=== PATIENT | female | born 1995 | race African-American/Black ===

== ENCOUNTER 2016-07-30 13:13 | Emergency (ER) | payer BC ==
[~2016-07-30] VITALS: Ht 157.5 cm; Wt 67.0 kg
[2016-07-30 13:24] VITALS: TEMP 37.6; Ht 157.5 cm; Wt 67.0 kg
[2016-07-30] MEDS ORDERED: BCPILLS PO (13:36)
[2016-07-30] MEDS ORDERED: IBUPROFEN 600 MG TAB PO STA (13:46)
--- NOTE | 2016-07-30 13:47 | EMERGENCY ROOM VISIT NOTE ---
History Report prepared by Violet: Shonda Magaña Under the Supervision of: Dr. Sanchez Martínez M.D. First contact with patient: 13:30 Chief Complaint: FLU LIKE SX Stated Complaint: CHILLS, COUGH, STOMACH PAIN, COLD LIKE SYMPTONS History of Present Illness The patient is a 21 year old female who presents to the Emergency Room with complaints of a persistent illness that began several days ago. The patient states that for the past several days she has been battling a cold. She notes chills, diaphoresis, and a cough with her symptoms. The patient denies any sore throat or fever. She states that she has been using cold medications for her symptoms. The patient states that last evening she took NyQuil to help her sleep and states that she woke up out of her sleep with abdominal discomfort. She states that at first she thought that she was hungry so she tried eating a granola bar, but states that she still had the pain. The patient states that last evening she was having diarrhea, but notes constipation today. She denies any urinary symptoms today. The patient states that she has been keeping up on her fluids. She states that her last menstrual cycle was 2 1/2 weeks ago. The patient denies any recent sick contacts. Source of History: patient Onset: several days ago Position: other (illness) Quality: other (illness) Timing: other (persistent) Associated Symptoms: + abdominal pain, + chills, + cough, + diaphoresis, + diarrhea, No fevers, No urinary symptoms Note: Associateed Symptoms: constipation Review of Systems All systems have been listed, reviewed, and are negative other than those previously mentioned. Please see Additional Medical History Sheet. Past Medical & Surgical Medical Problems: (1) No active medical problems Family History No significant family history Social History Smoking Status: Never Smoker Smokeless Tobacco Use: No Alcohol Use: occasionally Marital Status: single Housing Status: lives with family Occupation Status: employed, student Current/Historical Medications Scheduled Control Pills ( Control Pills), 1 TAB PO DAILY Scheduled PRN Ibuprofen Tab (Motrin), 600 MG PO Q6H PRN for Pain Allergies Coded Allergies: No Known Allergies (Unverified , 07/30/16) Physical Exam Vital Signs Date Time Temp Pulse Resp B/P Pulse Ox O2 Delivery O2 Flow Rate FiO2 07/30/16 15:30 98 16 112/76 97 Room Air 1/8/17 13:24 37.6 110 20 131/81 97 Physical Exam GENERAL: Patient awake, alert, oriented x 3. Patient follows commands. Patient does not appear toxic. Patient is adequately hydrated and well- nourished. SKIN: No erythema, pallor, cyanosis or rash HEENT: Normal head, pupils equal, reactive to light and accommodation. Ears normal. Oral cavity and posterior pharynx appear normal. Neck: Without adenopathy, no neck vein distention. LUNGS: Clear to auscultation. No wheezes, no rales, no rhonchi. HEART: No murmurs. No gallops. No rubs ABDOMEN: No masses, no rebound, no hepatomegaly or splenomegaly. EXTREMITIES: No signs of trauma. No pedal or pretibial edema. No calf or thigh tenderness. NEUROLOGIC: Cranial nerves II-XII within normal limits. No gross motor sensory function deficits. Medical Decision & Procedures Laboratory Results 07/30/16 14:00 07/30/16 14:00 Test 07/30/16 14:00 Red Blood Count 4.89 M/uL (4.2-5.4) Mean Corpuscular Volume 85.9 fL (80-100) Mean Corpuscular Hemoglobin 28.2 pg (25-34) Mean Corpuscular Hemoglobin Concent 32.9 g/dl (32-36) RDW Standard Deviation 40.8 fL (36.4-46.3) RDW Coefficient of Variation 12.9 % (11.5-14.5) Mean Platelet Volume 9.4 fL (7.4-10.4) Anion Gap 9.0 mmol/L (3-11) Est Creatinine Clear Calc Drug Dose 115.8 ml/min Estimated GFR () 144.2 Estimated GFR (Non- 124.4 BUN/Creatinine Ratio 7.1 (10-20) Calcium Level 9.1 mg/dl (8.5-10.1) Laboratory results as stated above per my review. Medications Administered Medications (Trade) Dose Ordered Sig/Rosalie Route Start Time Stop Time Status Last Admin Dose Admin Ibuprofen (Motrin Tab) 600 mg NOW STAT PO 07/30/16 13:46 07/30/16 13:48 DC 07/30/16 13:55 600 MG ED Course 1331: Past medical records reviewed. The patient was evaluated in room A10. A complete history and physical examination was performed. 1346: Ordered Motrin Tab 600 mg PO. 1510: I reevaluated the patient and she is resting comfortably. I discussed the exam findings with her and I discussed the treatment plan. She verbalized complete understanding and agreement. She is ready to go home. Medical Decision Nurses notes reviewed. Medical history sheet reviewed. Differential diagnosis includes but is not limited to: Viral infection, influenza, pneumonia, gastroenteritis. Blood work was evaluated. Please see above. The patient has no signs of bacterial infection. I believe she has a viral infection which did respond to ibuprofen. She will continue that medication at home. She was encouraged to drink extra fluids. Impression Primary Impression: Viremia Scribe Attestation The scribe's documentation has been prepared under my direction and personally reviewed by me in its entirety. I confirm that the note above accurately reflects all work, treatment, procedures, and medical decision making performed by me. Departure Information Dispostion Home / Self-Care Prescriptions Ibuprofen Tab (MOTRIN) 600 Mg Tab 600 MG PO Q6H Y for Pain, #20 TAB Prov: Sanchez Martínez M.D. 07/30/16 Referrals No Doctor, Assigned (PCP) Forms HOME CARE DOCUMENTATION FORM, IMPORTANT VISIT INFORMATION Patient Instructions A Signature Page, [facility] Additional Instructions 600 mg ibuprofen every 6 hours as needed for aches, pain or fever. Drink extra fluids. Follow-up at [facility] or return here in 3-4 days if symptoms are not subsiding. Work Instructions Return To Work: 2 days Specific Date: 08/01/16
[2016-07-30 14:33] LABS: MEAN CELL VOLUME 85.9 fL (80-100); MEAN CORPUSCULAR HEMOGLOBIN 28.2 pg (25-34); MEAN CORPUSCULAR HGB CONC 32.9 g/dl (32-36); MEAN PLATELET VOLUME 9.4 fL (7.4-10.4); PLATELET COUNT 315 K/uL (130-400); RED BLOOD COUNT 4.89 M/uL (4.2-5.4); WHITE BLOOD COUNT 8.72 K/uL (4.8-10.8)
[2016-07-30 14:48] LABS: BUN/CREATININE RATIO 7.1 (10-20); CALCIUM 9.1 mg/dl (8.5-10.1); CREATININE 0.69 mg/dl (0.60-1.20); POTASSIUM 3.6 mmol/L (3.5-5.1)
[2016-07-30] MEDS ORDERED: IBUP-1427 PO (15:16)
[2016-07-30 15:30] VITALS: BP 112/76; PULSE 98; O2SAT 97
== END 2016-07-30 15:35 | disposition home or self-care (01) ==
LOC: C.EDB 13:18 → C.EDA 15:35
DX: B34.9 Viral infection, unspecified (principal)

== ENCOUNTER 2017-11-13 12:51 | Emergency (ER) | payer BC ==
[~2017-11-13] VITALS: Ht 157.5 cm; Wt 65.6 kg
[~2017-11-13 12:51] MED LIST: BCPILLS PO
[2017-11-13 13:07] VITALS: Ht 157.5 cm; Wt 65.6 kg
[2017-11-13] MEDS ORDERED: SODIUM CHLORIDE 0.9% 500ML 500 ML IV STA (13:56)
[2017-11-13] MEDS ORDERED: KETOROLAC TROMETHAMINE 30 MG/ML VIAL IV STA (13:56)
[2017-11-13] MEDS ORDERED: ONDANSETRON INJ 2 MG/ML 2 ML VIAL IV PRN (14:00)
--- NOTE | 2017-11-13 14:00 | EMERGENCY ROOM VISIT NOTE ---
History First contact with patient: 13:47 Chief Complaint: PELVIC PAIN Stated Complaint: CRAMPS,TIGHTNESS History of Present Illness The patient is a 22 year old female who presents to the Emergency Room with complaints of lower abdominal cramping that has been intermittent throughout the day. The patient started her menses this morning. She denies any heavy bleeding. She reports also feeling constipated. She was able to have a normal bowel movement this morning. She denies any blood in her stool. She has also been intermittently nauseated without vomiting. No fever or chills. She denies any urinary symptoms. She took Tylenol with minimal relief of the pain. Review of Systems 10 system review performed and negative unless noted in HPI or below Past Medical/Surgical History Medical Problems: (1) No active medical problems Family History No significant family history Social History Smoking Status: Never Smoker Alcohol Use: occasionally Marital Status: single Housing Status: lives with family Occupation Status: employed, student Current/Historical Medications Scheduled PRN Ibuprofen (Motrin), 600 MG PO Q6H PRN for Pain Physical Exam Vital Signs Date Time Temp Pulse Resp B/P (MAP) Pulse Ox O2 Delivery O2 Flow Rate FiO2 11/13/17 18:02 37.0 59 20 107/67 100 11/13/17 17:53 59 20 107/67 100 Room Air 11/13/17 15:05 67 16 113/76 98 Room Air 11/13/17 13:07 37.0 72 20 108/69 98 Room Air Physical Exam VITALS: Vitals are noted on the nurse's note and reviewed by myself. Vital signs stable. GENERAL: 22-year-old female, in no acute distress, nondiaphoretic, well- developed well-nourished. SKIN: The skin was without rashes, erythema, edema, or bruising. HEAD: Normocephalic atraumatic. MOUTH: Mucous membranes moist. NECK: Supple without nuchal rigidity. No JVD. HEART: Regular rate and rhythm without murmurs gallops or rubs. LUNGS: Clear to auscultation bilaterally without wheezes, rales or rhonchi. No accessory muscle use. ABDOMEN: Positive bowel sounds x 4.Soft, tenderness palpation in the suprapubic region, without organomegaly. No guarding or rebound tenderness. MUSCULOSKELETAL: No muscle atrophy, erythema, or edema noted. Strength 5/5 throughout. NEURO: Patient was alert and oriented to person place and time. Normal sensation to touch. No focal neurological deficits. Medical Decision & Procedures ER Provider Diagnostic Interpretation: CT abdomen and pelvis with IV and oral contrast IMPRESSION: 1. No acute intra-abdominal or pelvic findings 2. No evidence of bowel obstruction. No evidence of free air 3. No evidence of acute appendicitis. No evidence of acute diverticulitis. Electronically signed by: Everardo Resendiz M.D. 11/13/2017 5:38 PM Dictated Date/Time: 11/13/2017 5:35 PM The status of this report is Signed. Draft = Not yet reviewed or approved by Radiologist. Signed = Reviewed and approved by Radiologist Pelvic ultrasound IMPRESSION: Normal pelvic ultrasound. Electronically signed by: Shaun Matute M.D. 11/13/2017 4:28 PM Dictated Date/Time: 11/13/2017 4:[address] abdomen and pelvis Laboratory Results 11/13/17 14:12 Red Blood Count 4.35, Mean Corpuscular Volume 85.7, Mean Corpuscular Hemoglobin 29.0, Mean Corpuscular Hemoglobin Concent 33.8, Mean Platelet Volume 9.3, Neutrophils (%) (Auto) 83.0, Lymphocytes (%) (Auto) 11.9, Monocytes (%) (Auto) 4.5, Eosinophils (%) (Auto) 0.2, Basophils (%) (Auto) 0.2, Neutrophils # (Auto) 7.62, Lymphocytes # (Auto) 1.09, Monocytes # (Auto) 0.41, Eosinophils # (Auto) 0.02, Basophils # (Auto) 0.02 11/13/17 14:12 Test 11/13/17 14:12 11/13/17 15:09 White Blood Count 9.18 K/uL (4.8-10.8) Red Blood Count 4.35 M/uL (4.2-5.4) Hemoglobin 12.6 g/dL (12.0-16.0) Hematocrit 37.3 % (37-47) Mean Corpuscular Volume 85.7 fL (80-100) Mean Corpuscular Hemoglobin 29.0 pg (25-34) Mean Corpuscular Hemoglobin Concent 33.8 g/dl (32-36) Platelet Count 281 K/uL (130-400) Mean Platelet Volume 9.3 fL (7.4-10.4) Neutrophils (%) (Auto) 83.0 % Lymphocytes (%) (Auto) 11.9 % Monocytes (%) (Auto) 4.5 % Eosinophils (%) (Auto) 0.2 % Basophils (%) (Auto) 0.2 % Neutrophils # (Auto) 7.62 K/uL (1.4-6.5) Lymphocytes # (Auto) 1.09 K/uL (1.2-3.4) Monocytes # (Auto) 0.41 K/uL (0.11-0.59) Eosinophils # (Auto) 0.02 K/uL (0-0.5) Basophils # (Auto) 0.02 K/uL (0-0.2) RDW Standard Deviation 41.4 fL (36.4-46.3) RDW Coefficient of Variation 13.0 % (11.5-14.5) Immature Granulocyte % (Auto) 0.2 % Immature Granulocyte # (Auto) 0.02 K/uL (0.00-0.02) Anion Gap 5.0 mmol/L (3-11) Est Creatinine Clear Calc Drug Dose 101.9 ml/min Estimated GFR () 127.0 Estimated GFR (Non- 109.6 BUN/Creatinine Ratio 13.5 (10-20) Calcium Level 9.0 mg/dl (8.5-10.1) Total Bilirubin 0.5 mg/dl (0.2-1) Aspartate Amino Transf (AST/SGOT) 12 U/L (15-37) Alanine Aminotransferase (ALT/SGPT) 22 U/L (12-78) Alkaline Phosphatase 75 U/L (45-117) Total Protein 8.4 gm/dl (6.4-8.2) Albumin 3.9 gm/dl (3.4-5.0) Globulin 4.5 gm/dl (2.5-4.0) Albumin/Globulin Ratio 0.9 (0.9-2) Lipase 80 U/L (73-393) Human Chorionic Gonadotropin, Qual NEG (NEG) Urine Color YELLOW Urine Appearance TURBID (CLEAR) Urine pH >= 9.0 (4.5-7.5) Urine Specific Driver 1.016 (1.000-1.030) Urine Protein NEG (NEG) Urine Glucose (UA) NEG (NEG) Urine Ketones NEG (NEG) Urine Occult Blood 3+ (NEG) Urine Nitrite NEG (NEG) Urine Bilirubin NEG (NEG) Urine Urobilinogen NEG (NEG) Urine Leukocyte Esterase NEG (NEG) Urine WBC (Auto) 5-10 /hpf (0-5) Urine RBC (Auto) 5-10 /hpf (0-4) Urine Hyaline Casts (Auto) /lpf (0-5) Urine Epithelial Cells (Auto) >30 /lpf (0-5) Urine Bacteria (Auto) NEG (NEG) Urine Renal Epithelial Cells /lpf (0-5) Urine Crystals AMORPHOUS SEDIMENT (NONE Urine Pathogenic Casts /lpf (0) Medications Administered Medications (Trade) Dose Ordered Sig/Rosalie Route Start Time Stop Time Status Last Admin Dose Admin Ketorolac Tromethamine (Toradol Inj) 30 mg NOW STAT IV 11/13/17 13:56 11/13/17 13:58 DC 11/13/17 14:17 30 MG Ondansetron HCl (Zofran Inj) 4 mg Q2H PRN IV 11/13/17 14:00 11/13/17 18:35 DC 11/13/17 14:17 4 MG Sodium Chloride 500 ml @ 999 mls/hr Q31M STAT IV 11/13/17 13:56 11/13/17 14:26 DC 11/13/17 13:56 999 MLS/HR ED Course Patient was seen and examined Vital signs including blood pressure were reviewed medications list was verified with patient Labs were obtained, and a saline lock was established The patient was medicated with Toradol 30 mg IV and Zofran 4 mg IV. She was hydrated with 500 cc of normal saline Upon reevaluation, the patient's pain was much better. We discussed her results. She voiced understanding, was comfortable being discharged home. I reviewed discharge instructions the patient. They voiced understanding and had no further questions. Medical Decision Differential diagnosis: Dysmenorrhea, UTI, constipation, ureteral stone, ovarian cyst, ectopic This patient is a 22-year-old female presents to emergency department complaining of lower abdominal pain associated with her menses today. On exam, she had some tenderness in the suprapubic region. Her labs reveal no leukocytosis. She is not anemic. Her ultrasound and CT were unremarkable. The etiology of her pain is unclear. It is possibly due to dysmenorrhea. The patient was given a prescription for Motrin 600 mg. She will follow-up with [facility] for a recheck this week. She will return with any worsening symptoms. This chart was completed in part utilizing [employer] Speech Voice Recognition software. Attempts were made to minimize the grammatical errors, random word insertions, pronoun errors and incomplete sentences. Any formal questions or concerns about the content, text or information contained within the body of this dictation should be directly addressed to the provider for clarification. Blood Pressure Screening Patient's blood pressure: Normal blood pressure Impression Primary Impression: Abdominal pain Departure Information Dispostion Home / Self-Care Condition GOOD Prescriptions Ibuprofen (Motrin) 600 Mg Tab 600 MG PO Q6H Y for Pain, #30 TAB For Initial Treatment Prov: Erum Callejas PA-C 11/13/17 Referrals No Doctor, Assigned (PCP) Patient Instructions My [facility] Additional Instructions You were evaluated in the emergency department for abdominal pain. There were no significant abnormalities of your ultrasound or CAT scan. Please take Motrin 600 mg every 6 hours as needed for discomfort Stay well-hydrated. Increase fluids over the next several days. Please follow-up with [facility] in the next 2-3 days for a recheck Do not hesitate to return to the emergency department with any new, worsening or concerning symptoms School Instructions Return To School: 1 day
[2017-11-13 14:28] LABS: BASO % 0.2 %; BASO ABS # 0.02 K/uL (0-0.2); EOS % 0.2 %; EOS ABS # 0.02 K/uL (0-0.5); HEMATOCRIT 37.3 % (37-47); HEMOGLOBIN 12.6 g/dL (12.0-16.0); IG# 0.02 K/uL (0.00-0.02); LYMPH % 11.9 %; LYMPH ABS # 1.09 K/uL (1.2-3.4); MEAN CELL VOLUME 85.7 fL (80-100); MEAN CORPUSCULAR HGB CONC 33.8 g/dl (32-36); MEAN PLATELET VOLUME 9.3 fL (7.4-10.4); MONO % 4.5 %; MONO ABS # 0.41 K/uL (0.11-0.59); NEUT ABS # 7.62 K/uL (1.4-6.5); PLATELET COUNT 281 K/uL (130-400); RED CELL DISTRIBUTION WIDTH SD 41.4 fL (36.4-46.3); WHITE BLOOD COUNT 9.18 K/uL (4.8-10.8)
[2017-11-13 14:45] LABS: ALBUMIN 3.9 gm/dl (3.4-5.0); CREATININE 0.77 mg/dl (0.60-1.20); POTASSIUM 3.5 mmol/L (3.5-5.1)
[2017-11-13] MEDS ORDERED: OPTIRAY 320 IV PRN (14:45)
[2017-11-13 14:48] LABS: TOTAL PROTEIN 8.4 gm/dl (6.4-8.2)
--- NOTE | 2017-11-13 16:29 | DIAGNOSTIC IMAGING REPORT ---
PELVIC ULTRASOUND, TRANSABDOMINAL AND TRANSVAGINAL HISTORY: severe lower abdominal pain COMPARISON: None. FINDINGS: Uterus: 7.8 x 5.3 x 3.5 cm. No uterine masses. Endometrial stripe: 7 mm in thickness. Right ovary: Normal in size and demonstrates normal color flow. Left ovary: Normal in size and demonstrates normal color flow. Miscellaneous:No pelvic free fluid. IMPRESSION: Normal pelvic ultrasound. Electronically signed by: Shaun Matute M.D. 11/13/2017 4:28 PM Dictated Date/Time: 11/13/2017 4:26 PM
--- NOTE | 2017-11-13 17:40 | DIAGNOSTIC IMAGING REPORT ---
CT ABD/PELVIS IV AND ORAL CONT CLINICAL HISTORY: lower abd pain COMPARISON STUDY: None. TECHNIQUE: Following the IV administration of 95 mL of Optiray-320, CT scan of the abdomen and pelvis was performed from the lung bases to the proximal femurs. Images are reviewed in the axial, sagittal, and coronal planes. IV contrast was administered without complication. A dose lowering technique was utilized adhering to the principles of ALARA. CT DOSE: 296.66 mGy.cm FINDINGS: Lower chest: The heart is normal in size and configuration, without pericardial effusion. The lung bases and pleural spaces are clear. Liver: The contrast-enhanced liver is normal in size, contour, and attenuation. There is no intrahepatic biliary ductal dilatation. The hepatic veins and portal veins are patent. Gallbladder: Unremarkable. Spleen: Normal in size and attenuation. Pancreas: Unremarkable. Adrenal glands: Unremarkable. Kidneys: There is symmetric renal cortical enhancement. The kidneys are normal in size without hydronephrosis. Bowel: There are no transition zones indicate bowel obstruction. There is no evidence of acute diverticulitis. The appendix appears normal as visualized. Peritoneum: There is no intraperitoneal free air or abdominal ascites. Vasculature: The abdominal aorta is normal in course and caliber. Adenopathy: None. Pelvic viscera: The bladder, and pelvic viscera are unremarkable. Skeletal structures: No destructive osseous lesions are seen. IMPRESSION: 1. No acute intra-abdominal or pelvic findings 2. No evidence of bowel obstruction. No evidence of free air 3. No evidence of acute appendicitis. No evidence of acute diverticulitis. Electronically signed by: Everardo Resendiz M.D. 11/13/2017 5:38 PM Dictated Date/Time: 11/13/2017 5:35 PM
[2017-11-13] MEDS ORDERED: IBUP600T44 PO (17:52)
[2017-11-13 18:02] VITALS: BP 107/67; PULSE 59; TEMP 37; O2SAT 100
== END 2017-11-13 18:03 | disposition home or self-care (01) ==
LOC: C.EDB 12:53 → C.EDC 18:03
DX: R10.30 Lower abdominal pain, unspecified (principal)